=== PATIENT | male | born 1990 | race African-American/Black ===

== ENCOUNTER 2017-07-24 04:17 | Emergency (ER) | payer OTHER ==
[~2017-07-24 04:17] MED LIST: Z.0.NO CURRENT MEDS
[2017-07-24 04:24] VITALS: BP 131/80; PULSE 102; RESP 18; TEMP 97.9; O2SAT 100
[2017-07-24] MEDS ORDERED: LIDOCAINE 2%/EPINEPHrine 1:100,000 20ML MDV NERV BLOCK ONE (04:30)
[2017-07-24] MEDS ORDERED: TETANUS/DIPHTHERIA TOXOID ADULT 0.5 ML VIAL IM ONE (04:30)
--- NOTE | 2017-07-24 04:34 | PD ---
HPI Chief Complaint: Laceration/Skin Injury Time Seen by Provider: 04:28 Travel History International Travel<30 days: No Contact w/Intl Traveler<30days: No Traveled to known affect area: No History of Present Illness HPI Patient comes in under police escort for evaluation of a laceration to his left cheek that occurred shortly prior to arrival. Patient was allegedly running from police when he tripped and fell hitting his face on the car bumper. Denies any loss consciousness, chest pain, shortness breath, headache, neck pain , numbness tingling anywhere, or being unable to. Uncertain of his last tetanus shot. Denies anything making this better or worse. [facility] Past Medical History Medical History: Denies Significant Hx Immunizations Current: Yes Tetanus Vaccination: Unknown Past Surgical History Surgical History: No Previous Surgery Social History Alcohol Use: No Tobacco Use: No Allergies-Medications (Allergen,Severity, Reaction): Coded Allergies: No Known Allergies (Verified Adverse Reaction, Unknown, 07/24/17) Reported Meds & Prescriptions Reported Meds & Active Scripts Active Reported No Current Meds (Miscellaneous Medication) Misc Review of Systems Except as stated in HPI: all other systems reviewed are Neg Physical Exam Narrative GENERAL: Well-developed, well nourished, in no acute distress, and non-ill appearing. SKIN: Laceration noted over left cheek. There is no foreign body noted. There is no crepitus. HEAD: Atraumatic. Normocephalic. EYES: Pupils equal and round. EOMI. No scleral icterus. No injection or drainage. ENT: No nasal bleeding or discharge. Mucous membranes pink and moist. No loose or fractured teeth appreciated. NECK: Trachea midline. No tenderness or crepitus over the midline of Cervical Spine. Supple. No nuclear rigidity. RESPIRATORY: No accessory muscle use. No respiratory distress. MUSCULOSKELETAL: No obvious deformities. No clubbing. No cyanosis. No edema. Full range of motion. NEUROLOGICAL: Awake and alert. No obvious cranial nerve deficits. Motor grossly within normal limits. Normal speech. PSYCHIATRIC: Appropriate mood and affect; insight and judgment normal. Data Data Last Documented VS Vital Signs Date Time Temp Pulse Resp B/P (MAP) Pulse Ox O2 Delivery O2 Flow Rate FiO2 07/24/17 04:24 97.9 102 18 131/80 (97) 100 Orders Orders Tetanus/Diphtheria Tox Adult (Tetanus/Di (07/24/17 04:30) Lidocai-Epi 2%-1:100,000 Inj (Xylocaine- (07/24/17 04:30) Lidocai-Epi 1%-1:100,000 Inj (Xylocaine- (07/24/17 04:36) Lidocai-Epi 1%-1:100,000 Inj (Xylocaine- (07/24/17 04:45) Ed Discharge Order (07/24/17 04:58) MDM Medical Decision Making Medical Screen Exam Complete: Yes Emergency Medical Condition: Yes Differential Diagnosis Laceration, abrasion, contusion, other Narrative Course The patient suffered laceration to the face. The laceration appeared clean and approximated well. There was no evidence to suggest foreign bodies. Visual and tactile exams were unremarkable. There was no evidence of neurovascular injury as well. The patient was irrigated with copious amounts of sterile normal saline and primary repair was performed. Please see procedure note. The patient was given signs and symptom warnings for infection, such as increasing pain, redness, swelling, associated heat, pus or fever. The patient was given instructions for timely follow up. The patient agreed with plan of care. Patient in no obvious distress upon re-evaluation. Any questions/concerns in reference to patient diagnosis/condition discussed and clarified prior to patient's discharge. Reinforced sheer importance of close follow up with patient 's primary physician or primary care clinic. Instructed patient to return to ED immediately, if symptoms return/worsen. Patient showed understanding of above instructions. Further instructions and recommendations were detailed in discharge paperwork. Patient ambulated without difficulty out of ED at discharge in police custody. Procedures Procedure Narrative LACERATION REPAIR LOCATION: Left cheek LENGTH: Approximately 2.75 cm NUMBER OF STITCHES/CARLOS: 6 simple interrupted REPAIR: Verbal consent was obtained. The area of the laceration was cleaned and prepped. The laceration was infiltrated with lidocaine with epi. The wound was copiously irrigated and explored without evidence of foreign body, bony involvement, ligament injury, tendon injury, or neurovascular injury. The wound was closed using 5-0 Vicryl. This was a single layer repair. The patient was advised to keep the affected area as clean and dry as possible using soap and water. There were no complications. Patient tolerated the procedure well. Diagnosis Primary Impression: Facial laceration Qualified Codes: S01.81XA - Laceration without foreign body of other part of head, initial encounter Referrals: [facility] Patient Instructions: Care For Your Absorbable Stitches (ED), Facial Laceration (ED), General Instructions Additional Instructions: Follow-up with your primary care physician next week for reevaluation. Keep wound dry and clean as possible using soap and water. Use Neosporin to promote healing. Do not soak or submerge wound. Return to the emergency department if symptoms get worse. Disposition: [address] LAW ENFORCEMNT Condition: Stable Teo Tinajero Jul 24, 2017 04:34
[2017-07-24] MEDS ORDERED: LIDOCAINE 1%/EPINEPHrine 1:100,000 SOLN 50 ML VIAL ONE (04:36)
[2017-07-24] MEDS ORDERED: LIDOCAINE 1%/EPINEPHrine 1:100,000 SOLN 50 ML VIAL INFIL ONE (04:45)
== END 2017-07-24 05:11 ==
LOC: NEPD 04:17
DX: S01.412A Laceration without foreign body of left cheek and temporomandibular area, initial encounter (principal); W01.0XXA Fall on same level from slipping, tripping and stumbling without subsequent striking against object, initial encounter; Y93.02 Activity, running; Z23 Encounter for immunization
CPT/HCPCS: 12013; 90471; 90714